=== PATIENT | male | born 1960 | race Caucasian/White ===

== ENCOUNTER 2016-07-08 10:38 | Day surgery (SDC) | payer BC, OTHER ==
--- NOTE | ~2016-07-08 | CN ---
Consultation Report [facility] [address] [place]. [address] NAME: GAUDENCIO TIWARI : 56 STATUS : [facility]#: [id number] AGE: 56 ADM/REG DATE : 07/08/16 MR#: [id number] REPORT SERV DATE: 07/08/16 DICTATED BY: JULIETA BOWER DATE: 07/08/16 REPORT STATUS : Draft TRANSCRIBED BY: MODAmbrosio DATE: 07/08/16 DATE OF CONSULTATION: Dear Dr. Bryson: Thank you for requesting my opinion regarding evaluation and management of Mr. Gaudencio Tiwari' mediastinal lymphadenopathy. Mr. Tiwari is an extremely pleasant 56-year-old gentleman, lifelong nonsmoker with a history of Antonio syndrome; venothromboembolic disease, on Xarelto; hypertension; and arthritis diagnosed in 1984 who presents with a history of drenching night sweats. He underwent a CT scan of the chest that demonstrated mediastinal lymphadenopathy and he has been sent here for evaluation for EBUS bronchoscopy. The patient states that his night sweats have been ongoing for the past six months. He characterizes it as moderate to severe in nature, well localized to the chest, nonradiating with no significant alleviating or exacerbating factors. He denies any shortness of breath, cough, hemoptysis, or weight loss or weight gain. REVIEW OF SYSTEMS: A detailed 14-point review of systems was completed. Pertinent positives and negatives are listed above. PAST MEDICAL HISTORY: 1. Antonio syndrome. 2. Blood clots in 2009. 3. Hypertension, first diagnosed in 1992, and arthritis diagnosed in 1984. PAST SURGICAL HISTORY: Left knee, right hand, right wrist, colon resection in 2016, colonoscopy in 2016, appendectomy in 1967. ALLERGIES: NO KNOWN DRUG ALLERGIES. HOME MEDICATIONS: Reviewed and located in the paper chart. 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 He is . He has been a lifelong nonsmoker. He does drink. He denies any significant alcohol or illicit drug abuse. FAMILY HISTORY: Hypertension, kidney issues, and cancer. PHYSICAL EXAMINATION: VITAL SIGNS: Reviewed and located in the paper chart. GENERAL: Morbidly obese white male and well nourished. HEENT: Normocephalic, atraumatic. Pupils are equal, round, and reactive to light and accommodation. Posterior oropharynx is crowded, but clear. NECK: No JVD. No LAD. Thick neck. Consultation Report [address] [place]. [address] NAME: GAUDENCIO TIWARI : 56 STATUS : [facility]#: [id number] AGE: 56 ADM/REG DATE : 07/08/16 MR#: [id number] REPORT SERV DATE: 07/08/16 DICTATED BY: JULIETA BOWER DATE: 07/08/16 REPORT STATUS : Draft TRANSCRIBED BY: SUDHIR DATE: 07/08/16 CARDIOVASCULAR: Regular rate and rhythm. S1, S2 present. LUNGS: Clear to auscultation bilaterally. ABDOMEN: Nontender, nondistended. Soft. Positive bowel sounds. Protuberant. EXTREMITIES: No clubbing, cyanosis, or edema. SKIN: No new rashes, lesions, or ulcers. PSYCHIATRIC: Alert and oriented x3. Appropriate mood and affect. Appropriate insight and judgment. NEUROLOGIC: 5/5 strength in the upper and lower extremities. Cranial nerves II through XII intact. Gait not tested. DTRs not performed. DIAGNOSTIC STUDIES: CT scan of the chest performed at [facility] demonstrates right hilar and mediastinal lymph node enlargement. No other mass or nodules are noted. Interval enlargement of the lateral right mid pole renal cortical cyst which measures now 10.7 cm. Several nonobstructing medullary calculi in both kidneys. Stable diffuse colonic diverticulosis and 2.5 cm posterior bladder wall diverticulum. This CT scan has been personally reviewed by me and I agree with the above interpretation. ASSESSMENT AND PLAN: Mr. Gaudencio Tiwari is an extremely pleasant 56-year-old gentleman, lifelong nonsmoker, who presents with a 6-month history of drenching night sweats. CT scan of the chest, abdomen, and pelvis revealed right hilar and mediastinal lymph node enlargement. There was concern for possible lymphoma. The other potential etiologies include inflammatory lymph nodes or metastatic disease. At this point, Mr. Tiwari would like to proceed forward with biopsy. We discussed in detail potential options including thoracic surgical biopsy or EBUS bronchoscopy. After careful discussion of the risks, benefits, and alternatives to each of these procedures, we agreed to proceed forward with EBUS bronchoscopy. The patient is aware that the procedure is associated with potential life-threatening risks including lung collapse, respiratory failure, and even . RECOMMENDATIONS: A summary of my recommendations are as follows: 1. Proceed with EBUS bronchoscopy. Await flow cytometry results. 2. Further recommendations to follow pending biopsy results. 3. If EBUS bronchoscopy is negative and clinical suspicion remains high, consider thoracic surgical biopsy. Thank you for allowing me to participate in Mr. Gaudencio Tiwari' care. Sincerely, GORGE/SUDHIR Consultation Report [place] [address] [id number] NAME: GAUDENCIO TIWARI : 56 STATUS : [facility]#: [id number] AGE: 56 ADM/REG DATE : 07/08/16 MR#: [id number] REPORT SERV DATE: 07/08/16 DICTATED BY: JULIETA BOWER DATE: 07/08/16 REPORT STATUS : Draft TRANSCRIBED BY: SUDHIR DATE: 07/08/16 Julieta Bower M.D. / [id number] CC: Adrian Baker M.D.
--- NOTE | ~2016-07-08 | EGD ---
EGD REPORT [facility] [address] [address] NAME: GAUDENCIO TIWARI : 56 STATUS : REG [facility]#: [id number] AGE: 56 ADM/REG DATE : 07/08/16 MR#: [id number] REPORT SERV DATE: 07/08/16 DICTATED BY: JESSICA BOWER DATE: 07/08/16 REPORT STATUS : Draft TRANSCRIBED BY: [facility] DATE: 07/08/16 Pulmonology Patient Name: Gaudencio Tiwari Procedure Date: 07/08/2016 1:04 PM Date of : 1960 Attending MD: ANDERS BOWER MD Procedure Date No Time: 07/08/2016 Procedure: EBUS Bronchoscopy Indications: Mediastinal adenopathy Providers: ANDERS BOWER MD Referring MD: ARIELA MARTINEZ Medicines: Lidocaine 2% 20 mL Complications: No immediate complications Procedure: Pre-Anesthesia Assessment: - A History and Physical has been performed. Patient meds and allergies have been reviewed. The risks and benefits of the procedure and the sedation options and risks were discussed with the patient. All questions were answered and informed consent was obtained. Patient identification and proposed procedure were verified prior to the procedure by the physician and the nurse in the procedure room. Mental Status Examination: normal. Respiratory Examination: clear to auscultation. CV Examination: normal and RRR, no murmurs, no S3 or S4. ASA Grade Assessment: III - A patient with severe systemic disease. After reviewing the risks and benefits, the patient was deemed in satisfactory condition to undergo the procedure. The anesthesia plan was to use general anesthesia. Immediately prior to administration of medications, the patient was re-assessed for adequacy to receive sedatives. The heart rate, respiratory rate, oxygen saturations, blood pressure, adequacy of pulmonary ventilation, and response to care were monitored throughout the procedure. The physical status of the patient was re-assessed after the procedure. After obtaining informed consent, the Bronchoscope was introduced through the mouth, via the endotracheal tube (the patient was intubated for the procedure) and advanced to the tracheobronchial tree. The procedure was accomplished without difficulty. The patient tolerated the procedure well. Findings: The laryngeal mask airway is in normal position. The vocal cords move normally with breathing. The subglottic space is normal. The trachea is of normal caliber. The maris is sharp. The tracheobronchial tree was EGD REPORT [address] [address] NAME: GAUDENCIO TIWARI : 56 STATUS : REG [facility] PAT#: [id number] AGE: 56 ADM/REG DATE : 07/08/16 MR#: [id number] REPORT SERV DATE: 07/08/16 DICTATED BY: JESSICA BOWER DATE: 07/08/16 REPORT STATUS : Draft TRANSCRIBED BY: [employer] DATE: 07/08/16 examined to at least the first subsegmental level. Bronchial mucosa and anatomy are normal; there are no endobronchial lesions, and no secretions. EBUS TBNA of lymph node level 11L x 4 passes for cytology EBUS TBNA of lymph node level 4L x 4 passes for cytology EBUS TBNA of lymph node level 7 x 6 passes for cytology and flow cytometry EBUS TBNA of lymph node level 4R x 6 passes for cytology and flow cytometry EBUS TBNA of lymph node level 11R x 11 passes for cytology and flow cytometry Impression: Rapid On-Site Evaluation (ERICH): Preliminary cytology is "lymphocytes, no carcinoma. Please await flow cytometry" Recommendation: - Await test results. - Chest X-ray. - Follow up with referring physician. Attending Participation: I personally performed the entire procedure. ANDERS BOWER MD 07/08/2016 2:34 PM This report has been signed electronically. Number of Addenda: 0 Note Initiated On: 07/08/2016 1:04 PM [address] [id number]
[~2016-07-08 10:38] MED LIST: BYSTOLIC10 MG PO; CIALIS5 MG PO; DIOVAN HCT320 MG/25 PO; DURICEF PO; FLAG500TAB PO; FLEX PO; GLUCOSAMINEPO PO; LEVAQUIN750 MG PO; LOFIBRA160 MG PO; NORV10 PO; PERCOCET1 TA2 PO; REVATIO20 PO; ULTRAM50 PO; XARELTO20 MG PO; Z300 PO; ZANAFLEX2 MG PO; ZANTAC150 MG PO; ZANTAC300 MG PO
[2016-07-08 11:05] LABS: BASOPHILS 0.3 %; BASOPHILS ABSOLUTE 0.02 10/3/uL (0.0-0.16); EOSINOPHILS 1.9 %; EOSINOPHILS ABSOLUTE 0.14 10/3/uL (0.0-0.53); IMMATURE GRANULOCYTES 0.1 %; IMMATURE GRANULOCYTES ABSOLUTE 0.01 10/3/uL (0.0-0.11); LYMPHOCYTES 27.5 %; LYMPHOCYTES ABSOLUTE 2.04 10/3/uL (0.67-4.30); MEAN CORPUS HGB CONC 34.3 g/dL (32.0-36.0); MEAN CORPUSCULAR HEMOGLOB 29.5 pg (26.0-34.0); MEAN CORPUSCULAR VOLUME 86.1 fL (80-100); MEAN PLATELET VOLUME 9.3 fL (9.2-13.0); MONOCYTES 6.5 %; MONOCYTES ABSOLUTE 0.48 10/3/uL (0.21-1.20); NEUTROPHILS 63.7 %; NEUTROPHILS ABSOLUTE 4.74 10/3/uL (2.02-8.40); PLATELET COUNT 227 10/3/uL (150-400); RBC DISTRIBUTION WIDTH 13.7 % (12.0-16.0); WHITE BLOOD CELLS 7.4 10/3/uL (4.5-10.5)
[2016-07-08 11:06] LABS: HEMATOCRIT 42.6 % (40.0-51.0); HEMOGLOBIN 14.6 g/dL (13.6-17.8); MANUAL DIFF NO %; RED CELL COUNT 4.95 10/6/uL (4.7-6.1)
[2016-07-08 11:12] LABS: PARTIAL THROMBO TIME 30.2 SEC (22.5-37.2); PROTIME (NOT ORD) 13.4 SEC (12.0-14.5)
[2016-10-25] MEDS ORDERED: LOFIB160 PO (09:11)
[2016-12-20] MEDS ORDERED: PERCOCET 7.5/321 TAB PO (10:13)
== END 2016-07-08 16:56 | disposition home or self-care (01) ==
LOC: DMU 10:38
PROVIDERS: Internal Medicine
PROC: 07974ZX Drainage of Thorax Lymphatic, Percutaneous Endoscopic Approach, Diagnostic (ICD-10-PCS; principal; 2016-07-08 12:30)
PROC: BB4CZZZ Ultrasonography of Mediastinum (ICD-10-PCS; 2016-07-08 12:30)
DX: R59.0 Localized enlarged lymph nodes (principal); I10 Essential (primary) hypertension; I47.1 Supraventricular tachycardia; N20.0 Calculus of kidney; E78.00 Pure hypercholesterolemia, unspecified; M02.30 Reiter's disease, unspecified site; M19.90 Unspecified osteoarthritis, unspecified site; M10.9 Gout, unspecified; K21.9 Gastro-esophageal reflux disease without esophagitis; Z98.890 Other specified postprocedural states; Z90.49 Acquired absence of other specified parts of digestive tract; Z82.49 Family history of ischemic heart disease and other diseases of the circulatory system; Z84.1 Family history of disorders of kidney and ureter; Z80.9 Family history of malignant neoplasm, unspecified; Z79.01 Long term (current) use of anticoagulants; Z79.899 Other long term (current) drug therapy; Z86.718 Personal history of other venous thrombosis and embolism; Z86.711 Personal history of pulmonary embolism; K44.9 Diaphragmatic hernia without obstruction or gangrene
CPT/HCPCS: 71010; 85025; 85610; 85730; 88172; 88173; 88177; 88305; 93005; A9270-GY; C1725; J2250; J2405; J3010

== ENCOUNTER 2016-07-14 11:53 | Emergency (ER) | payer BC, OTHER ==
[2016-07-14 12:46] LABS: BASOPHILS 0.2 %; BASOPHILS ABSOLUTE 0.01 10/3/uL (0.0-0.16); EOSINOPHILS 1.8 %; EOSINOPHILS ABSOLUTE 0.11 10/3/uL (0.0-0.53); HEMATOCRIT 40.6 % (40.0-51.0); IMMATURE GRANULOCYTES 0.2 %; IMMATURE GRANULOCYTES ABSOLUTE 0.01 10/3/uL (0.0-0.11); LYMPHOCYTES 28.6 %; LYMPHOCYTES ABSOLUTE 1.79 10/3/uL (0.67-4.30); MEAN CORPUS HGB CONC 34.5 g/dL (32.0-36.0); MEAN CORPUSCULAR HEMOGLOB 29.7 pg (26.0-34.0); MEAN PLATELET VOLUME 9.2 fL (9.2-13.0); MONOCYTES 9.1 %; MONOCYTES ABSOLUTE 0.57 10/3/uL (0.21-1.20); NEUTROPHILS 60.1 %; NEUTROPHILS ABSOLUTE 3.76 10/3/uL (2.02-8.40); PLATELET COUNT 217 10/3/uL (150-400); RBC DISTRIBUTION WIDTH 13.4 % (12.0-16.0); RED CELL COUNT 4.72 10/6/uL (4.7-6.1); WHITE BLOOD CELLS 6.3 10/3/uL (4.5-10.5)
[2016-07-14 12:47] LABS: MANUAL DIFF NO %
[2016-07-14 12:49] LABS: ASCORBIC ACID (UR NOT ORDER) NEG (NEG); BILIRUBIN, URINE NEGATIVE (NEG); KETONE, URINE NEGATIVE (NEG); LEUKOCYTE ESTERASE(NOT OR NEG (NEG); NITRITE (URINE) NEG (NEG); WBC (NOT ORDERED) (RFLEX) 1 (0-5)
[2016-07-14 12:54] LABS: INTERNATIONAL NORMAL RATI 1.2 UNITS (-); PARTIAL THROMBO TIME 33.1 SEC (22.5-37.2)
[2016-07-14 13:04] LABS: ALBUMIN 3.7 G/DL (3.5-5.0); ALKALINE PHOSPHATASE 44 U/L (45-117); BUN (BLOOD UREA NITROGEN) 18 MG/DL (6-23); CALCIUM, SERUM 8.9 MG/DL (8.5-10.4); CHLORIDE, SERUM 106 MMOL/L (96-112); CO2 (CARBON DIOXIDE) 29 MMOL/L (24-34); CREATININE 1.46 MG/DL (0.70-1.30); GFR AFRICAN AMERICAN 61 ML/MIN (>=60); GFR NON AFRICAN AMERICAN 52 ML/MIN (>=60); GLUCOSE, SERUM 88 MG/DL (60-99); SGOT(AST) 24 U/L (5-40); SGPT(ALT) 36 U/L (5-65); SODIUM, SERUM 144 MMOL/L (135-148); TOTAL BILIRUBIN 0.6 MG/DL (0-1.2); TOTAL PROTEIN 7.3 G/DL (6.0-8.5); TROPONIN I <0.02 NG/ML (<0.05)
[2016-07-14 13:05] LABS: GLOBULIN 3.6 G/DL (2.5-4.1); POTASSIUM, SERUM 3.2 MMOL/L (3.5-5.3)
[2016-10-25] MEDS ORDERED: LOFIB160 PO (09:11)
[2016-12-20] MEDS ORDERED: PERCOCET 7.5/321 TAB PO (10:13)
== END 2016-07-14 16:34 | disposition home or self-care (01) ==
LOC: ER 11:53
PROVIDERS: Emergency Medicine
DX: M54.6 Pain in thoracic spine (principal); I10 Essential (primary) hypertension; Z79.899 Other long term (current) drug therapy
CPT/HCPCS: 71010; 71250; 74176; 80053; 81001; 83690; 83880; 84484; 85025; 85610; 85730; 99285

== ENCOUNTER 2016-09-26 08:19 | Day surgery (SDC) | payer BC, OTHER ==
[2016-09-23 17:51] LABS: BASOPHILS 0.2 %; BASOPHILS ABSOLUTE 0.02 10/3/uL (0.0-0.16); EOSINOPHILS 1.3 %; EOSINOPHILS ABSOLUTE 0.12 10/3/uL (0.0-0.53); HEMATOCRIT 42.5 % (40.0-51.0); HEMOGLOBIN 14.5 g/dL (13.6-17.8); IMMATURE GRANULOCYTES 0.1 %; IMMATURE GRANULOCYTES ABSOLUTE 0.01 10/3/uL (0.0-0.11); LYMPHOCYTES 26.9 %; LYMPHOCYTES ABSOLUTE 2.44 10/3/uL (0.67-4.30); MEAN CORPUS HGB CONC 34.1 g/dL (32.0-36.0); MEAN CORPUSCULAR HEMOGLOB 30.3 pg (26.0-34.0); MEAN PLATELET VOLUME 9.7 fL (9.2-13.0); MONOCYTES 7.5 %; MONOCYTES ABSOLUTE 0.68 10/3/uL (0.21-1.20); NEUTROPHILS ABSOLUTE 5.81 10/3/uL (2.02-8.40); PLATELET COUNT 234 10/3/uL (150-400); RBC DISTRIBUTION WIDTH 14.4 % (12.0-16.0); RED CELL COUNT 4.79 10/6/uL (4.7-6.1)
[2016-09-23 17:56] LABS: MANUAL DIFF NO %; MEAN CORPUSCULAR VOLUME 88.7 fL (80-100); WHITE BLOOD CELLS 9.1 10/3/uL (4.5-10.5)
[2016-09-23 18:01] LABS: A/G RATIO 1.1 (0.7-1.9); ALBUMIN 4.1 G/DL (3.5-5.0); ALKALINE PHOSPHATASE 45 U/L (45-117); CALCIUM, SERUM 9.2 MG/DL (8.5-10.4); CHLORIDE, SERUM 105 MMOL/L (96-112); CO2 (CARBON DIOXIDE) 31 MMOL/L (24-34); CREATININE 1.44 MG/DL (0.70-1.30); GFR AFRICAN AMERICAN 62 ML/MIN (>=60); GFR NON AFRICAN AMERICAN 53 ML/MIN (>=60); GLOBULIN 3.6 G/DL (2.5-4.1); GLUCOSE, SERUM 84 MG/DL (60-99); POTASSIUM, SERUM 3.2 MMOL/L (3.5-5.3); SGOT(AST) 22 U/L (5-40); SGPT(ALT) 43 U/L (5-65); SODIUM, SERUM 140 MMOL/L (135-148); TOTAL BILIRUBIN 0.5 MG/DL (0-1.2); TOTAL PROTEIN 7.7 G/DL (6.0-8.5)
[2016-09-23 18:03] LABS: BUN (BLOOD UREA NITROGEN) 22 MG/DL (6-23)
--- NOTE | ~2016-09-26 | PREOPHP ---
PreOp History and Physical [place] [address] [place]. [address] NAME: ADOLPH HELTON : 56 STATUS : PRE [facility] PAT#: [id number] AGE: 56 ADM/REG DATE : MR#: [id number] REPORT SERV DATE: 09/26/16 DICTATED BY: HILDA POLANCO III DATE: 09/10/16 REPORT STATUS : Draft TRANSCRIBED BY: MODL DATE: 09/10/16 HISTORY OF PRESENT ILLNESS: This 56-year-old male comes to the operating room for open left inguinal hernia repair. The patient had an episode of severe coughing on 07/13/2016. He noticed a lump in his left groin, which was painful. He went to the emergency room. He was found have a left inguinal hernia. The patient has a left inguinal hernia, which is reducible and asymptomatic. He comes to the operating room now for open repair of this hernia. PAST HISTORY: 1. Hypertension. 2. History of deep venous thrombosis and pulmonary embolus. 3. Obesity. 4. Sleep apnea. 5. History of sigmoid diverticulitis requiring sigmoid colectomy. 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 PAST SURGICAL HISTORY: Includes sigmoid colectomy with repair of colovesical fistula, cholecystectomy, knee surgery. FAMILY HISTORY: Positive for colon cancer and diabetes. SOCIAL HISTORY: No history of tobacco use. The patient does have history of alcohol use. ALLERGIES: NONE. MEDICATIONS: Valsartan, Bystolic, amlodipine, fenofibrate, Xarelto, tizanidine. PHYSICAL EXAMINATION: GENERAL: This is a large obese male, in no acute distress. He is alert and oriented x3. VITAL SIGNS: Blood pressure 168/102, pulse 64, temperature 98.2. HEENT: Unremarkable. Cranial nerves 2 through 12 are normal. LUNGS: Clear. CARDIAC: Normal. ABDOMEN: Soft, nontender. In the left groin, there is a moderate-sized inguinal hernia. The hernia is reducible. EXTREMITIES: Normal. ASSESSMENT: A 56-year-old male with, 1. Reducible symptomatic left inguinal hernia. 2. Obesity. 3. Hypertension. 4. History of deep venous thrombosis and pulmonary embolus. 5. Obstructive sleep apnea. PLAN: The patient comes to the operating room for open left inguinal hernia repair. This procedure, the risks, benefits, and alternatives, including, but not limited to the risk for bleeding, infection, pain, swelling, scarring, deformity to the area, seroma formation, PreOp History and Physical [address] [address] NAME: ADOLPH HELTON : 56 STATUS : PRE [facility] PAT#: [id number] AGE: 56 ADM/REG DATE : MR#: [id number] REPORT SERV DATE: 09/26/16 DICTATED BY: HILDA POLANCO III DATE: 09/10/16 REPORT STATUS : Draft TRANSCRIBED BY: SUDHIR DATE: 09/10/16 hematoma formation, wound failure, recurrence of the hernia, nerve injury, chronic paresthesia, or pain in the thigh, scrotum, or groin, chronic neuralgia or neuroma, and unforeseen complications including deep venous thrombosis, pulmonary embolus, myocardial infarction, stroke, pneumonia, and , have been explained the patient prior to surgery. The fact that he is at increased risk for thromboembolic complications while his Xarelto is held perioperatively has been explained as well as increased risk of bleeding because the use of this medication. The patient's questions have been answered. He understands the risks and agrees to surgery as planned. ANNA/SUDHIR Hilda Polanco III, M.D. / [id number]
--- NOTE | ~2016-09-26 | OP ---
Record Of Operation [facility] [address] [place]. [address] NAME: ADOLPH HELTON : 56 STATUS : REG [facility]#: [id number] AGE: 56 ADM/REG DATE : 09/26/16 MR#: [id number] REPORT SERV DATE: 09/26/16 DICTATED BY: HILDA SAMUELS III DATE: 09/26/16 REPORT STATUS : Draft TRANSCRIBED BY: MODAmbrosio DATE: 09/26/16 DATE OF PROCEDURE: 09/26/2016 PREOPERATIVE DIAGNOSIS: Symptomatic left inguinal hernia. POSTOPERATIVE DIAGNOSIS: Symptomatic left inguinal hernia, direct left inguinal hernia. PROCEDURE: Open Duy tension-free repair of left inguinal hernia with Prolene mesh. ANESTHESIA: General with intubation. COMPLICATIONS: None. ESTIMATED BLOOD LOSS: Less than 5 mL. SPECIMENS: Lipoma of spermatic cord. DRAINS: None. LAP AND SPONGE COUNT: Correct x3. BRIEF HISTORY: This 56-year-old male presented with an enlarging symptomatic left inguinal hernia. It was felt that open repair of this hernia was indicated. This procedure; the risks; benefits; and alternatives; including but not limited to the risk for bleeding; infection; pain; swelling; scarring; deformity to the area; seroma formation; hematoma formation; recurrence of the hernia; nerve injury; chronic paresthesia; pain in the thigh, scrotum, or groin; chronic neuralgia or neuroma; and unforeseen complications including deep venous thrombosis, pulmonary embolus, myocardial infarction, stroke, pneumonia, and were explained to the patient prior to the surgery. His questions were answered. He understood the risks and agreed to the surgery as planned. The patient is very obese and the risk for recurrence of the hernia was explained as well. Again, he understood the risks and agreed to the surgery as planned. DESCRIPTION OF PROCEDURE: After being properly identified, and after discussing the risks and benefits of the surgery with him again in the preoperative area, and after identifying the hernia with him in the preoperative area, the patient was taken to the operating room, and placed in the supine position on the operating room table. General anesthesia was administered. He was intubated without difficulty. The abdomen and groins were prepped and draped sterilely in the usual fashion. After an appropriate "time-out" per JCAHO standards, an oblique incision was made in the left groin from the pubic tubercle medially towards the anterior superior iliac spine laterally. The incision was continued through the subcutaneous tissue. Hemostasis was controlled with the cautery. The external oblique fascia was identified. This fascia was opened along the direction of fibers so as to open the external inguinal ring. Using sharp dissection, the underlying ilioinguinal and genitofemoral nerves were identified. These were carefully isolated and protected to one side. Using sharp dissection, the spermatic cord and its contents were mobilized from the Record Of Operation [place] [id number] [facility] [address] [facility] [place] [address] NAME: ADOLPH HELTON : 56 STATUS : REG [facility] PAT#: [id number] AGE: 56 ADM/REG DATE : 09/26/16 MR#: [id number] REPORT SERV DATE: 09/26/16 DICTATED BY: HILDA SAMUELS III DATE: 09/26/16 REPORT STATUS : Draft TRANSCRIBED BY: SUDHIR DATE: 09/26/16 floor of the canal. A Sanjana drain was placed beneath it. There was noted to be a direct hernia protruding through the floor of the canal. Using sharp dissection, the spermatic cord was skeletonized. There was a large lipoma along the spermatic cord. This was dissected down to the base at the internal ring, ligated and divided. There was no indirect component to the hernia. A Prolene mesh was then selected and cut to the appropriate size for the floor of the canal. A slit was made in the mesh laterally to incorporate the spermatic cord. The mesh was then secured to the floor of the canal with a running 2-0 Prolene suture, which was placed between the edge of the mesh and shelving edge of the inguinal ligament laterally and the edge of the mesh and internal oblique and transversalis fascia medially. The mesh was secured lateral to the cord as well. Upon completion of this, the mesh lay nicely over the floor of the canal and the defect which had been reduced. The mesh was not twisted or kinked in any way. It was not under any tension. Hemostasis was assured. The external oblique fascia was closed with a running 2-0 Silk suture. Subcutaneous tissue was closed with running 3-0 chromic suture. The skin was closed with running subcuticular 4-0 Monocryl stitch. The incision was injected with 0.5% Marcaine. Dressings were applied. Anesthesia was reversed, and the patient was taken to the recovery room in stable condition. He tolerated the procedure well. His family was informed the results of the surgery. The patient will be discharged when stable and comfortable. His family was advised that he should keep the wound clean and dry for 48 hours, that he should not drive for three to four days after surgery or while using narcotics, that he should resume his usual medications including his Xarelto which he will resume tomorrow. They were advised that he should not perform any heavy lifting for six weeks. He was given a prescription for Percocet 7.5 one t.i.d., #12, as needed for pain, which he was advised not to use while driving. He was asked to return in two weeks for followup or sooner if any fever, chills, wound drainage, or other problems prior to that time. RHJ/MODL Hilda Samuels III, M.D. / [id number] CC: Adrian Razo III, M.D.
[2016-10-25] MEDS ORDERED: LOFIB160 PO (09:11)
[2016-12-20] MEDS ORDERED: PERCOCET 7.5/321 TAB PO (10:13)
== END 2016-09-26 15:50 | disposition home or self-care (01) ==
LOC: SDC 08:19
PROVIDERS: Surgery
PROC: 0YU60JZ Supplement Left Inguinal Region with Synthetic Substitute, Open Approach (ICD-10-PCS; principal; 2016-09-26 10:15)
DX: K40.90 Unilateral inguinal hernia, without obstruction or gangrene, not specified as recurrent (principal); I10 Essential (primary) hypertension; G47.33 Obstructive sleep apnea (adult) (pediatric); M10.9 Gout, unspecified; E78.5 Hyperlipidemia, unspecified; K21.9 Gastro-esophageal reflux disease without esophagitis; Z90.49 Acquired absence of other specified parts of digestive tract; Z86.718 Personal history of other venous thrombosis and embolism; Z98.890 Other specified postprocedural states; Z68.37 Body mass index [BMI] 37.0-37.9, adult; Z79.899 Other long term (current) drug therapy
CPT/HCPCS: 71020; 80053; 85025; 88304; 93005; A9270-GY; C1781; J0690; J2250; J2270; J2405; J2710; J3010